=== PATIENT | male | born 1975 | race Caucasian/White ===

== ENCOUNTER 2018-04-07 15:15 | Emergency (ER) | payer BC ==
[~2018-04-07] VITALS: Ht 177.8 cm; Wt 84.9 kg
[2018-04-07 15:38] LABS: HEMATOCRIT 42.9 % (38.0-50.0); HEMOGLOBIN 14.5 G/DL (12.5-16.6); MCH 31.6 PG (29.0-34.0); MCHC 33.8 G/DL (30.0-36.0); MCV 93.5 FL (86-99); PLATELET COUNT 238 K/uL (156-360); RBC DIS.WIDTH-CV 11.3 % (11.8-14.6); RBC DIS.WIDTH-SD 38.5 % (39-53); RED BLOOD COUNT 4.59 M/uL (4.00-5.50); WHITE BLOOD COUNT 5.1 K/uL (4.1-10.2)
[2018-04-07 15:47] LABS: CHLORIDE 106 mEq/L (99-109); POTASSIUM 4.7 mEq/L (3.7-5.4); SODIUM 141 mEq/L (136-147)
[2018-04-07 15:49] LABS: GLUCOSE 100 mg/dL (70-99)
[2018-04-07 15:52] LABS: CREATININE 1.1 mg/dL (0.6-1.3); GFR ESTIMATE (CALCULATED) > 59 mL/min/ (58.99-99999)
[2018-04-07 15:53] LABS: UREA NITROGEN (BUN) 15 mg/dL (9-23)
[2018-04-07 15:59] LABS: TROP-I INTERPRETATION NEGATIVE; TROPONIN-I < 0.01 ng/mL (0.0-0.30)
[2018-04-07 18:24] VITALS: BP 115/72
== END 2018-04-07 18:25 | disposition home or self-care (01) ==
LOC: EME 15:15
DX: R00.2 Palpitations (principal); I49.1 Atrial premature depolarization; R94.31 Abnormal electrocardiogram [ECG] [EKG]
CPT/HCPCS: 71046; 80048; 84484; 85027; 93005; 99281; 99283